=== PATIENT | male | born 2000 | race Caucasian/White ===

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

== ENCOUNTER → 2022-12-25 09:25 | Outpatient (CLI) | payer BC, SELFPAY ==
--- NOTE | 2022-12-25 09:28 | DI.RAD.S_ITS ---
PROCEDURE: XR T AND L SPINE 2 TO 3 VIEWS INDICATIONS: Scoliosis thoracic spine TECHNIQUE: 2 views acquired of the thoracolumbar spine. COMPARISON: None. FINDINGS: Bones: No acute fractures or dislocations. Visualized inferior ribs appear intact. Right convexity scoliosis of the thoracic spine centered at T7-T8. Silvestre angle of 24? as measured between the superior endplate of T4 and the inferior endplate of T10. Minimal left convexity curvature of the lumbar spine centered at L3, a Silvestre angle of 6? measured between the superior endplate of L1 and inferior endplate of L4. Soft tissues: No suspicious soft tissue calcifications. IMPRESSION: Right convexity scoliosis of the thoracic spine. Minimal left convexity curvature of the lumbar spine. Dictated by: Martinez Rizvi M.D. on 12/25/2022 at 10:25 Approved by: Martinez Rizvi M.D. on 12/25/2022 at 10:29
== END ==
PROVIDERS: PCP Family Medicine; Referring Provider Physician Assistant; Visit Provider Physician Assistant
DX: M41.9 Scoliosis, unspecified (principal)
CPT/HCPCS: 72082

== ENCOUNTER → 2023-06-12 09:52 | Outpatient (CLI) | payer BC, SELFPAY ==
[2023-06-12 16:08] LABS: Vitamin D 25 Hydroxy (D3) 46.7 ng/mL (30.0-100.0)
== END ==
PROVIDERS: PCP Family Medicine; Referring Provider Family Medicine; Visit Provider Family Medicine
DX: E55.9 Vitamin D deficiency, unspecified (principal)
CPT/HCPCS: 36415; 82306